=== PATIENT | male | born 1995 | race African-American/Black ===

== ENCOUNTER 2016-06-15 10:26 | Emergency (ER) | payer OTHER ==
[~2016-06-15 10:26] MED LIST: BACTRIM DS TABL1 TA1 PO; IBUPROFEN800 MG PO; NO MEDICATIONS
== END 2016-06-15 10:36 | disposition home or self-care (01) ==
LOC: SED 10:26
DX: J01.90 Acute sinusitis, unspecified (principal); I10 Essential (primary) hypertension; J45.909 Unspecified asthma, uncomplicated; F17.210 Nicotine dependence, cigarettes, uncomplicated
CPT/HCPCS: 99282